=== PATIENT | male | born 2000 | race Caucasian/White ===

== ENCOUNTER 2022-06-15 23:28 | Emergency (ER) | payer MEDICAID ==
[~2022-06-15] VITALS: Ht 165.1 cm; Wt 66.0 kg
[2022-06-16 01:30] VITALS: BP 125/78
== END 2022-06-16 01:30 | disposition home or self-care (01) ==
LOC: ER 23:28
DX: S61.211A Laceration without foreign body of left index finger without damage to nail, initial encounter (principal); H54.7 Unspecified visual loss; W26.8XXA Contact with other sharp object(s), not elsewhere classified, initial encounter; Y93.89 Activity, other specified; Y92.9 Unspecified place or not applicable
CPT/HCPCS: 99281